=== PATIENT | female | born 1975 | race Caucasian/White ===

== ENCOUNTER 2016-07-29 02:05 | Emergency (ER) | payer OTHER | END 2016-07-29 05:00 | disposition home or self-care (01) | LOC: FER 02:05 | DX: L03.115 Cellulitis of right lower limb (principal); M54.5 Low back pain; G89.29 Other chronic pain; Z98.890 Other specified postprocedural states | CPT/HCPCS: 87804; 87899; 99283 ==

== ENCOUNTER 2016-08-18 14:25 | Emergency (ER) | payer OTHER | END 2016-08-18 17:45 | disposition home or self-care (01) | LOC: FER 14:25 | DX: L02.415 Cutaneous abscess of right lower limb (principal); M32.9 Systemic lupus erythematosus, unspecified; Z88.0 Allergy status to penicillin; Z88.2 Allergy status to sulfonamides; Z88.5 Allergy status to narcotic agent; Z88.6 Allergy status to analgesic agent | CPT/HCPCS: 86403; 87070; 87077; 87186; 87205 ==